=== PATIENT | female | born 1950 | race African-American/Black ===

== ENCOUNTER 2018-09-01 06:02 | Inpatient (IN) | payer OTHER ==
[~2018-09-01] VITALS: Ht 162.6 cm; Wt 72.6 kg
[2018-09-01 07:15] LABS: BASOPHILS % 0.4 % (0.0-2.0); EOSINOPHILS % 0.5 % (0.0-5.0); HEMATOCRIT. 36.1 % (36.0-48.0); HEMOGLOBIN. 11.8 g/dL (12.0-16.0); LYMPHOCYTES % 10.5 % (20.0-50.0); MEAN CORPUSCULAR VOLUME 85.9 fL (81.0-99.0); MEAN PLATELET VOLUME 9.1 fl (7.4-10.4); MONOCYTES % 8.8 % (2.0-8.0); NEUTROPHILS % 79.8 % (40.0-76.0); PLATELET 159 x1000/uL (130-400); RED CELL DISTRIBUTION WIDTH 18.8 % (11.6-14.6)
[2018-09-01 07:23] LABS: CHLORIDE 108 mEq/L (98-107)
[2018-09-01] MEDS ORDERED: AZITHROMYCIN 500 MG in DEXT 5% WATER 250 ML IV SCH (08:30)
[2018-09-01] MEDS ORDERED: CEFTRIAXONE 1 G PREMIX 50 ML IV ONE (08:30)
[2018-09-01] MEDS ORDERED: ASPIRIN 325MG TABLET PO ONE (09:15)
[2018-09-01 10:50] VITALS: BP 135/57
[2018-09-01 11:00] VITALS: BP 135/57
[2018-09-01] MEDS ORDERED: AMLO2.5T45 MT (11:43)
[2018-09-01] MEDS ORDERED: ASPI-1159 MT (11:43)
[2018-09-01] MEDS ORDERED: METO25TA6 MT (11:43)
[2018-09-01 12:15] VITALS: BP 105/70
[2018-09-01] MEDS ORDERED: CLONIDINE 0.1MG TABLET PO PRN (13:45)
[2018-09-01] MEDS ORDERED: IPRATROPIUM/ALBUTEROL 0.5-3(2.5)MG/3ML NEB INH PRN (13:45)
[2018-09-01] MEDS ORDERED: MAGNESIUM/ALUMINUM HYDROXIDE/SIMETHICONE 30ML UDC PO PRN (13:45)
[2018-09-01] MEDS ORDERED: ONDANSETRON HCL 4MG/2ML INJ IV PRN (13:45)
[2018-09-01] MEDS: SODIUM CHLORIDE 0.9% INJ 3ML FLUSH IVF SCH ×2 (14:00→22:16)
[2018-09-01] MEDS: METOPROLOL TARTRATE 25MG TABLET PO SCH (14:30)
[2018-09-01] MEDS: AMLODIPINE 2.5MG TABLET PO SCH (14:30)
[2018-09-01 16:00] VITALS: BP 148/80
[2018-09-01] MEDS ORDERED: IPRATROPIUM BROMIDE (0.02%) 0.5MG/2.5ML NEB HHN PRN (16:30)
[2018-09-01 19:05] LABS: HEPATITIS B SURFACE ANTIGEN NEGATIVE
[2018-09-01 19:33] LABS: HEPATITIS B CORE AB IGM NEGATIVE
[2018-09-01 19:34] LABS: HEPATITIS A AB IGM NEGATIVE (NEGATIVE)
[2018-09-01 20:00] VITALS: BP 148/56
[2018-09-02] VITALS (7 sets, daily range): BP systolic 107–152; BP diastolic 56–71
[2018-09-02] MEDS: METOPROLOL TARTRATE 25MG TABLET PO SCH ×2 (00:28→09:13)
[2018-09-02] MEDS: SODIUM CHLORIDE 0.9% INJ 3ML FLUSH IVF SCH ×2 (06:06→16:32)
[2018-09-02 07:06] LABS: HEMATOCRIT 36.5 % (36.0-48.0); HEMOGLOBIN 11.7 g/dL (12.0-16.0); MEAN CORPUSCULAR HEMOGLOBIN 27.8 pg (28.0-32.0); MEAN CORPUSCULAR VOLUME 86.6 fL (81.0-99.0); PLATELET 170 x1000/uL (130-400); RED BLOOD CELL COUNT 4.22 mill/uL (4.2-5.4); RED CELL DISTRIBUTION WIDTH 18.7 % (11.6-14.6)
[2018-09-02] MEDS ORDERED: BENZONATATE 100MG CAPSULE PO PRN (08:30)
[2018-09-02] MEDS ORDERED: FUROSEMIDE 40MG/4ML VIAL IVP NR (08:30)
[2018-09-02] MEDS ORDERED: GUAIFENESIN 600MG ER TABLET PO SCH (09:00)
[2018-09-02] MEDS: AMLODIPINE 2.5MG TABLET PO SCH (09:13)
[2018-09-02 11:16] LABS: CHLORIDE 106 mEq/L (98-107)
[2018-09-02] MEDS: IPRATROPIUM BROMIDE (0.02%) 0.5MG/2.5ML NEB HHN SCH ×3 (12:34→20:02)
[2018-09-02] MEDS ORDERED: ACETYLCYSTEINE 100MG/ML 10% VIAL 4ML INH SCH (14:00)
== END 2018-09-02 20:48 | disposition short-term general hospital (02) | DRG 308 ==
LOC: ER 06:02 → EDBEDREQ 06:34 → 8WST 09:28 → EDBEDREQ 09:31 → EDBEDREQTM 09:31 → ENRESERV 09:50
PROVIDERS: ADMIT Family Medicine Adult Medicine; ATTEND Family Medicine Adult Medicine
DX: I47.1 Supraventricular tachycardia (principal); J96.00 Acute respiratory failure, unspecified whether with hypoxia or hypercapnia; I50.43 Acute on chronic combined systolic (congestive) and diastolic (congestive) heart failure; E44.0 Moderate protein-calorie malnutrition; I11.0 Hypertensive heart disease with heart failure; Z68.27 Body mass index [BMI] 27.0-27.9, adult; K21.9 Gastro-esophageal reflux disease without esophagitis; R74.0 Nonspecific elevation of levels of transaminase and lactic acid dehydrogenase [LDH]; Z85.3 Personal history of malignant neoplasm of breast; Z86.74 Personal history of sudden cardiac arrest; Z87.01 Personal history of pneumonia (recurrent); Z92.3 Personal history of irradiation; Z79.82 Long term (current) use of aspirin; Z79.899 Other long term (current) drug therapy; Z88.8 Allergy status to other drugs, medicaments and biological substances; Z82.49 Family history of ischemic heart disease and other diseases of the circulatory system; Z83.3 Family history of diabetes mellitus
CPT/HCPCS: 36415; 71045; 83880; 84443; 84484; 85027; 86705; 86709; 86803; 87340; 93005; 93306; 93970; 94640; 96365; 96375; 99291; J0456; J0696; J1940; J7060; J7608

== ENCOUNTER 2024-10-20 14:00 | Inpatient (IN) | payer OTHER, MEDICARE ==
[~2024-10-20] VITALS: Ht 162.6 cm; Wt 81.2 kg
[~2024-10-20 14:00] MED LIST: AMLO2.5T45 MT; ASPI-1497 MT; METO25TA6 MT
[2024-10-20] MEDS: VANCOMYCIN 1G PREMIX 200 ML IV SCH ×2 (14:15→15:07)
[2024-10-20] MEDS: DILTIAZEM HCL 5MG/ML 5ML VIAL IV ONE ×2 (14:22→14:58)
[2024-10-20] MEDS: LACTATED RINGERS 1,000 ML IV SCH (14:25)
[2024-10-20] MEDS: IPRATROPIUM BROMIDE (0.02%) 0.5MG/2.5ML NEB HHN STA (14:26)
[2024-10-20] MEDS: ALBUTEROL (0.083%) 2.5MG/3ML NEB HHN SCH (14:26)
[2024-10-20 14:30] VITALS: RESP 29
[2024-10-20] MEDS: ACETAMINOPHEN 325MG TABLET PO ONE (14:39)
[2024-10-20] MEDS: METHYLPREDNISOLONE SOD SUCC 125MG/2ML (ACT-O-VIAL) IV STA (14:41)
[2024-10-20 14:45] LABS: HEMATOCRIT. 40.2 % (36.0-48.0); HEMOGLOBIN. 13.1 g/dL (12.0-16.0); MEAN CORPUSCULAR HEMOGLOBIN 27.8 pg (28.0-32.0); MEAN CORPUSCULAR HGB CONC 32.5 g/dL (31.0-37.0); MEAN CORPUSCULAR VOLUME 85.4 fL (81.0-99.0); MEAN PLATELET VOLUME 8.7 fl (7.4-10.4); PLATELET 164 x1000/uL (130-400); RED BLOOD CELL COUNT 4.71 mill/uL (4.2-5.4); RED CELL DISTRIBUTION WIDTH 15.5 % (11.6-14.6); WHITE BLOOD COUNT 19.2 x1000/uL (4.5-11.0)
[2024-10-20] MEDS: CEFTRIAXONE 1GM/50ML 50 ML IV ONE (14:46)
[2024-10-20 14:49] LABS: CHLORIDE 105 mEq/L (98-107); POTASSIUM 3.2 mEq/L (3.5-5.1); SODIUM 139 mEq/L (136-145)
[2024-10-20 14:50] LABS: CARBON DIOXIDE 27 mEq/L (21-32)
[2024-10-20 14:51] LABS: CALCIUM 9.1 mg/dL (8.7-10.4); DIFFERENTIAL COMMENT 1
[2024-10-20 14:55] LABS: CREATININE 0.8 mg/dL (0.6-1.0); GLUCOSE 132 mg/dL (70-105)
[2024-10-20 14:56] LABS: INR 1.2; PROTHROMBIN TIME 13.6 sec (9.6-11.0); TROPONIN I HIGH SENSITIVITY 26 ng/L (3.0-34); UREA NITROGEN BLOOD 12 mg/dL (9-23)
[2024-10-20 14:57] LABS: ALANINE AMINOTRANSFERASE 16 IU/L (10-49); ALBUMIN 4.3 g/dL (3.2-4.8); ASPARTATE AMINOTRANSFERASE 19 IU/L (<34); LACTIC ACID 2.3 mmol/L (0.4-2.0)
[2024-10-20 14:58] LABS: BILIRUBIN DIRECT 0.4 mg/dL (<=3.0); PROTEIN TOTAL 7.9 g/dL (6.0-8.3)
[2024-10-20] MEDS ORDERED: DILTIAZEM HCL 125 MG in DEXT 5% WATER 100 ML IV PRN (15:00)
[2024-10-20] MEDS: DILTIAZEM HCL 60MG TABLET PO ONE (15:09)
[2024-10-20] MEDS ORDERED: KCL 20MEQ/100ML PREMIX 100 ML IV ONE (15:15)
[2024-10-20 15:16] LABS: GIANT PLATELETS 1+; PLATELET ESTIMATE NORMAL
[2024-10-20] MEDS: DILTIAZEM HCL 125 MG in DEXT 5% WATER 100 ML IV ONE (15:46)
[2024-10-20] MEDS: KCL 10MEQ/50ML PREMIX 50 ML IV ONE (15:49)
[2024-10-20] MEDS: ENOXAPARIN 80MG/0.8ML SYR SUBCUT ONE (16:23)
[2024-10-20 17:23] LABS: TROPONIN I HIGH SENSITIVITY 41 ng/L (3.0-34)
[2024-10-20] MEDS: DEXT 5%/0.45% NACL 1000ML 1,000 ML IV SCH (17:30)
[2024-10-20] MEDS ORDERED: ACETAMINOPHEN 650MG/20.3ML UDC GT PRN (17:30)
[2024-10-20] MEDS ORDERED: DOCUSATE SODIUM 100MG CAPSULE PO PRN (17:30)
[2024-10-20] MEDS ORDERED: MAGNESIUM/ALUMINUM HYDROXIDE/SIMETHICONE 30ML UDC PO PRN (17:30)
[2024-10-20] MEDS ORDERED: ACETAMINOPHEN 325MG TABLET PO PRN (17:30)
[2024-10-20] MEDS ORDERED: CLONIDINE 0.1MG TABLET PO PRN (17:30)
[2024-10-20] MEDS ORDERED: IPRATROPIUM/ALBUTEROL 0.5-3(2.5)MG/3ML NEB HHN PRN (17:30)
[2024-10-20 17:37] LABS: BG BASE EXCESS -3.2 mmol/L (-2.0-3.0); BG CARBOXYHEMOGLOBIN 0.7 % (0.5-1.5); BG DEOXYHEMOGLOBIN 0.3 % (0.0-5.0); BG FRACTION INSPIRED OXYGEN 80; BG HCO3 ACT 21.8 mmol/L (21.0-28.0); BG METHEMOGLOBIN 0.1 % (0.5-1.5); BG OXYGEN SATURATION 99.7 % (94.0-98.0); BG OXYHEMOGLOBIN 98.9 % (94.0-98.0); BG PCO2 38.9 mmHg (32.0-45.0); BG PH 7.366 (7.350-7.450); BG PO2 384.8 mmHg (83.0-108.0); BG SAMPLE SITE RIGHT BRACHIAL; BG TOTAL HEMOGLOBIN 13.4 g/dL (12.0-16.0); BG VENT MODE MASK - BIPAP
[2024-10-20] MEDS: KCL 20MEQ/100ML PREMIX 100 ML IV NR (17:55)
[2024-10-20] MEDS ORDERED: IPRATROPIUM/ALBUTEROL 0.5-3(2.5)MG/3ML NEB HHN SCH (18:00)
[2024-10-20] MEDS: DOXYCYCLINE 100MG/100ML 100 ML IV SCH (18:31)
[2024-10-20] MEDS: AMIODARONE 200MG TABLET PO SCH (18:31)
[2024-10-20] MEDS: IPRATROPIUM BROMIDE (0.02%) 0.5MG/2.5ML NEB HHN SCH (19:53)
[2024-10-20 20:22] VITALS: PULSE 122; RESP 22; O2SAT 97
[2024-10-20] MEDS: FUROSEMIDE 40MG/4ML VIAL IVP NR (20:43)
[2024-10-20] MEDS: ATORVASTATIN CALCIUM 20MG TABLET PO SCH (21:51)
[2024-10-20] MEDS: PIPERACILLIN/TAZO 3.375G/50ML 50 ML IV SCH (22:08)
[2024-10-20 23:50] VITALS: PULSE 115; RESP 22; O2SAT 95
[2024-10-20] MEDS: ACETYLCYSTEINE 200MG/ML 20% VIAL 4ML INH SCH (23:54)
[2024-10-21] VITALS (14 sets, daily range): BP systolic 101–134; BP diastolic 67–122; PULSE 104–137; RESP 16–32; TEMP 36.114–37.72524; O2SAT 93–100
[2024-10-21] MEDS: DILTIAZEM HCL 30MG TABLET PO SCH (00:54)
[2024-10-21 01:17] LABS: CREATINE KINASE MB FRACTION 6.6 ng/mL (0.5-3.6)
[2024-10-21] MEDS: DILTIAZEM HCL 125 MG in DEXT 5% WATER 100 ML IV SCH (03:16)
[2024-10-21] MEDS: FUROSEMIDE 40MG/4ML VIAL IVP NR (03:17)
[2024-10-21] MEDS: IPRATROPIUM/ALBUTEROL 0.5-3(2.5)MG/3ML NEB HHN SCH (03:51)
[2024-10-21] MEDS: ENOXAPARIN 80MG/0.8ML SYR SUBCUT SCH (05:38)
[2024-10-21 08:39] LABS: BG CARBOXYHEMOGLOBIN 0.4 % (0.5-1.5); BG DEOXYHEMOGLOBIN 2.6 % (0.0-5.0); BG FRACTION INSPIRED OXYGEN 60; BG HCO3 ACT 26.8 mmol/L (21.0-28.0); BG METHEMOGLOBIN 0.3 % (0.5-1.5); BG OXYGEN SATURATION 97.4 % (94.0-98.0); BG OXYHEMOGLOBIN 96.7 % (94.0-98.0); BG PCO2 47.7 mmHg (32.0-45.0); BG PH 7.368 (7.350-7.450); BG PO2 95.3 mmHg (83.0-108.0); BG SAMPLE SITE RIGHT RADIAL; BG TOTAL HEMOGLOBIN 13.4 g/dL (12.0-16.0); BG VENT MODE MASK - BIPAP
[2024-10-21] MEDS ORDERED: AMIODARONE 200MG TABLET PO SCH (09:00)
[2024-10-21] MEDS: PANTOPRAZOLE SODIUM 40 MG/VIAL IV SCH (09:20)
[2024-10-21] MEDS: FUROSEMIDE 40MG/4ML VIAL IVP SCH (09:20)
[2024-10-21] MEDS: ASPIRIN 81MG TABLET PO SCH (09:21)
[2024-10-21] MEDS: ANASTROZOLE 1 MG TABLET PO SCH (09:21)
[2024-10-21] MEDS: AMLODIPINE 5MG TABLET PO SCH (09:21)
[2024-10-21] MEDS ORDERED: IPRATROPIUM/ALBUTEROL 0.5-3(2.5)MG/3ML NEB HHN PRN (09:30)
[2024-10-21] MEDS: VANCOMYCIN 1G PREMIX 200 ML IV SCH (11:28)
[2024-10-21] MEDS: IPRATROPIUM BROMIDE (0.02%) 0.5MG/2.5ML NEB HHN SCH (11:59)
[2024-10-21 12:00] LABS: HEMATOCRIT. 39.3 % (36.0-48.0); HEMOGLOBIN. 12.8 g/dL (12.0-16.0); MEAN CORPUSCULAR HEMOGLOBIN 27.9 pg (28.0-32.0); MEAN CORPUSCULAR HGB CONC 32.6 g/dL (31.0-37.0); MEAN CORPUSCULAR VOLUME 85.7 fL (81.0-99.0); MEAN PLATELET VOLUME 9.9 fl (7.4-10.4); PLATELET 158 x1000/uL (130-400); RED BLOOD CELL COUNT 4.59 mill/uL (4.2-5.4); RED CELL DISTRIBUTION WIDTH 15.9 % (11.6-14.6); WHITE BLOOD COUNT 33.8 x1000/uL (4.5-11.0)
[2024-10-21 12:06] LABS: DIFFERENTIAL COMMENT 1
[2024-10-21 12:18] LABS: CARBON DIOXIDE 25 mEq/L (21-32); CHLORIDE 102 mEq/L (98-107); POTASSIUM 3.7 mEq/L (3.5-5.1); SODIUM 136 mEq/L (136-145)
[2024-10-21 12:19] LABS: CALCIUM 9.7 mg/dL (8.7-10.4)
[2024-10-21 12:24] LABS: GLUCOSE 169 mg/dL (70-105); TRIGLYCERIDE 50 mg/dL (0-150); UREA NITROGEN BLOOD 17 mg/dL (9-23)
[2024-10-21 12:25] LABS: CREATINE KINASE MB FRACTION 9.9 ng/mL (0.5-3.6); LDL CHOLESTEROL 55 mg/dL (5-100)
[2024-10-21 12:26] LABS: CHOLESTEROL 122 mg/dL (<200); HDL CHOLESTEROL 52 mg/dL (>65); PHOSPHORUS 2.5 mg/dL (2.5-4.9)
[2024-10-21 12:30] LABS: THYROID STIMULATING HORMONE 0.41 uIU/mL (0.55-4.78)
[2024-10-21] MEDS: DILTIAZEM HCL 60MG TABLET PO SCH (13:21)
[2024-10-21] MEDS: SODIUM CHLORIDE 0.9% 1,000 ML IV SCH (17:57)
[2024-10-21] MEDS: DOXYCYCLINE 100MG/100ML 100 ML IV SCH (17:57)
[2024-10-21 18:15] LABS: CREATINE KINASE MB FRACTION 11.7 ng/mL (0.5-3.6)
[2024-10-21 19:45] LABS: ANISOCYTOSIS 1+; PLATELET ESTIMATE NORMAL
[2024-10-21] MEDS: MAGNESIUM 4 G PREMIX 100 ML IV NR (20:13)
[2024-10-21] MEDS: ONDANSETRON HCL 4MG/2ML INJ IV PRN (20:38)
[2024-10-21] MEDS: GUAIFENESIN 200MG/10ML SUGAR FREE UDC PO PRN (20:39)
[2024-10-22] VITALS (45 sets, daily range): BP systolic 104–140; BP diastolic 71–94; PULSE 80–149; RESP 16–46; TEMP 36.22512–37.16964; O2SAT 92–98
[2024-10-22 01:03] LABS: CLARITY URINE TURBID (CLEAR); COLOR URINE DARK YELLOW (YELLOW); GLUCOSE URINE NEGATIVE (NEGATIVE); KETONES URINE TRACE (NEGATIVE); LEUKOCYTE ESTERASE URINE NEGATIVE (NEGATIVE); NITRITE URINE NEGATIVE (NEGATIVE); OCCULT BLOOD URINE 2+ (NEGATIVE); PROTEIN URINE 2+ (NEGATIVE)
[2024-10-22 01:09] LABS: *AMPHETAMINES SCREEN URINE NEGATIVE (NEGATIVE)
[2024-10-22 01:10] LABS: *BARBITURATES SCREEN URINE NEGATIVE (NEGATIVE); *BENZODIAZEPINES SCREEN URINE NEGATIVE (NEGATIVE); *COCAINE SCREEN URINE NEGATIVE (NEGATIVE); CANNABINOID URINE SCREEN NEGATIVE (NEGATIVE); ECSTASY MDMA SCREEN URINE NEGATIVE (NEGATIVE); METHADONE URINE SCREEN NEGATIVE (NEGATIVE); OPIATES URINE SCREEN NEGATIVE (NEGATIVE); PHENCYCLIDINE URINE SCREEN NEGATIVE (NEGATIVE)
[2024-10-22 02:01] LABS: WBC URINE 0-2 /hpf (0-2)
[2024-10-22 02:02] LABS: SQUAMOUS EPITHELIAL CELL URINE FEW /lpf (RARE/1+)
[2024-10-22 02:04] LABS: BACTERIA URINE TRACE
[2024-10-22] MEDS: DIGOXIN 500MCG/2ML AMP IV PRN (06:00)
[2024-10-22] MEDS: ENOXAPARIN 100MG/ML SYR SUBCUT SCH (06:02)
[2024-10-22 09:04] LABS: BG BASE EXCESS 3.6 mmol/L (-2.0-3.0); BG CARBOXYHEMOGLOBIN 1.1 % (0.5-1.5); BG DEOXYHEMOGLOBIN 6.8 % (0.0-5.0); BG FRACTION INSPIRED OXYGEN 60; BG HCO3 ACT 28.5 mmol/L (21.0-28.0); BG OXYGEN SATURATION 93.1 % (94.0-98.0); BG OXYHEMOGLOBIN 92.1 % (94.0-98.0); BG PH 7.429 (7.350-7.450); BG PO2 63.7 mmHg (83.0-108.0); BG SAMPLE SITE RIGHT RADIAL; BG TOTAL HEMOGLOBIN 12.7 g/dL (12.0-16.0)
[2024-10-22 09:18] LABS: HEMOGLOBIN. 11.9 g/dL (12.0-16.0); MEAN CORPUSCULAR HGB CONC 32.9 g/dL (31.0-37.0); MEAN CORPUSCULAR VOLUME 84.9 fL (81.0-99.0); MEAN PLATELET VOLUME 9.3 fl (7.4-10.4); PLATELET 134 x1000/uL (130-400); RED BLOOD CELL COUNT 4.24 mill/uL (4.2-5.4); RED CELL DISTRIBUTION WIDTH 15.8 % (11.6-14.6); WHITE BLOOD COUNT 25.7 x1000/uL (4.5-11.0)
[2024-10-22 09:19] LABS: DIFFERENTIAL COMMENT 1
[2024-10-22 09:27] LABS: CHLORIDE 101 mEq/L (98-107); POTASSIUM 3.8 mEq/L (3.5-5.1); SODIUM 134 mEq/L (136-145)
[2024-10-22 09:28] LABS: CALCIUM 9.1 mg/dL (8.7-10.4); CARBON DIOXIDE 28 mEq/L (21-32)
[2024-10-22 09:33] LABS: CREATININE 0.8 mg/dL (0.6-1.0); GLUCOSE 115 mg/dL (70-105); UREA NITROGEN BLOOD 17 mg/dL (9-23)
[2024-10-22 10:22] LABS: PLATELET ESTIMATE NORMAL
[2024-10-22] MEDS: METHYLPREDNISOLONE SOD SUCC 125MG/2ML (ACT-O-VIAL) IV NR (11:34)
[2024-10-22] MEDS: DIGOXIN 500MCG/2ML AMP IV NR (12:51)
[2024-10-22] MEDS ORDERED: DIGOXIN 500MCG/2ML AMP IV PRN (14:30)
[2024-10-22 14:31] LABS: BG BASE EXCESS 1.4 mmol/L (-2.0-3.0); BG CARBOXYHEMOGLOBIN 0.5 % (0.5-1.5); BG DEOXYHEMOGLOBIN 3.7 % (0.0-5.0); BG FRACTION INSPIRED OXYGEN 100; BG HCO3 ACT 26.2 mmol/L (21.0-28.0); BG METHEMOGLOBIN 0.3 % (0.5-1.5); BG OXYGEN SATURATION 96.3 % (94.0-98.0); BG OXYHEMOGLOBIN 95.5 % (94.0-98.0); BG PCO2 41.9 mmHg (32.0-45.0); BG PH 7.414 (7.350-7.450); BG PO2 82.2 mmHg (83.0-108.0); BG SAMPLE SITE RIGHT RADIAL; BG TOTAL HEMOGLOBIN 13.3 g/dL (12.0-16.0); BG TOTAL RESPIRATORY RATE 33 b/min; BG VENT MODE MASK - BIPAP
[2024-10-22] MEDS: DILTIAZEM HCL 90MG TABLET PO SCH (14:56)
[2024-10-22] MEDS: DEXT 5%/LACTATED RINGERS 1,000 ML IV SCH (17:17)
[2024-10-22] MEDS: METHYLPREDNISOLONE SOD SUCC 40MG/ML (ACT-O-VIAL) IV SCH (18:05)
[2024-10-22] MEDS ORDERED: AMIODARONE 150MG/100ML D5W 100 ML IV NR (21:20)
[2024-10-22] MEDS ORDERED: AMIODARONE HCL 900 MG in DEXT 5% WATER 482 ML IV SCH (22:00)
[2024-10-22] MEDS ORDERED: AMIODARONE 360MG/200ML 200 ML IV SCH (22:00)
[2024-10-22 23:47] LABS: BG BASE EXCESS 3.9 mmol/L (-2.0-3.0); BG CARBOXYHEMOGLOBIN 0.6 % (0.5-1.5); BG DEOXYHEMOGLOBIN 4.1 % (0.0-5.0); BG FRACTION INSPIRED OXYGEN 100; BG HCO3 ACT 28.6 mmol/L (21.0-28.0); BG METHEMOGLOBIN 0.3 % (0.5-1.5); BG OXYGEN SATURATION 95.9 % (94.0-98.0); BG PCO2 43.3 mmHg (32.0-45.0); BG PH 7.437 (7.350-7.450); BG PO2 78.4 mmHg (83.0-108.0); BG TOTAL HEMOGLOBIN 12.1 g/dL (12.0-16.0); BG VENT MODE MASK - BIPAP
[2024-10-23] VITALS (74 sets, daily range): BP systolic 116–159; BP diastolic 52–140; PULSE 81–137; RESP 15–40; TEMP 36.114–36.9474; O2SAT 74–99
[2024-10-23] MEDS: BLOOD SUGAR DIAGNOSTIC STRIP TEST SCH
[2024-10-23] MEDS: INSULIN LISPRO 100 UNITS/ML SUBCUT SCH ×2 (01:52→05:48)
[2024-10-23] MEDS: FUROSEMIDE 40MG/4ML VIAL IVP NR (07:11)
[2024-10-23 07:33] LABS: HEMATOCRIT 33.2 % (36.0-48.0); HEMOGLOBIN 11.1 g/dL (12.0-16.0); MEAN CORPUSCULAR HEMOGLOBIN 28.1 pg (28.0-32.0); MEAN CORPUSCULAR HGB CONC 33.4 g/dL (31.0-37.0); MEAN CORPUSCULAR VOLUME 84.2 fL (81.0-99.0); PLATELET 135 x1000/uL (130-400); RED BLOOD CELL COUNT 3.94 mill/uL (4.2-5.4); RED CELL DISTRIBUTION WIDTH 15.6 % (11.6-14.6); WHITE BLOOD COUNT 19.7 x1000/uL (4.5-11.0)
[2024-10-23 07:42] LABS: CARBON DIOXIDE 29 mEq/L (21-32); CHLORIDE 101 mEq/L (98-107); POTASSIUM 4.2 mEq/L (3.5-5.1); SODIUM 135 mEq/L (136-145)
[2024-10-23 07:43] LABS: CALCIUM 9.4 mg/dL (8.7-10.4)
[2024-10-23 07:48] LABS: CREATININE 0.6 mg/dL (0.6-1.0); GLUCOSE 140 mg/dL (70-105); UREA NITROGEN BLOOD 18 mg/dL (9-23)
[2024-10-23 08:52] LABS: BG BASE EXCESS 2.2 mmol/L (-2.0-3.0); BG CARBOXYHEMOGLOBIN 0.1 % (0.5-1.5); BG DEOXYHEMOGLOBIN 3.9 % (0.0-5.0); BG FRACTION INSPIRED OXYGEN 90; BG METHEMOGLOBIN 0.3 % (0.5-1.5); BG OXYGEN SATURATION 96.1 % (94.0-98.0); BG OXYHEMOGLOBIN 95.7 % (94.0-98.0); BG PCO2 33.3 mmHg (32.0-45.0); BG PH 7.494 (7.350-7.450); BG PO2 74.3 mmHg (83.0-108.0); BG SAMPLE SITE RIGHT RADIAL; BG TOTAL HEMOGLOBIN 12.3 g/dL (12.0-16.0); BG VENT MODE MASK - BIPAP
[2024-10-23] MEDS: FAMOTIDINE 20MG/2ML VIAL IV SCH (09:49)
[2024-10-23 10:40] LABS: HEMATOCRIT. 34.8 % (36.0-48.0); HEMOGLOBIN. 11.3 g/dL (12.0-16.0); MEAN CORPUSCULAR HEMOGLOBIN 27.5 pg (28.0-32.0); MEAN CORPUSCULAR HGB CONC 32.5 g/dL (31.0-37.0); MEAN CORPUSCULAR VOLUME 84.7 fL (81.0-99.0); MEAN PLATELET VOLUME 9.3 fl (7.4-10.4); PLATELET 148 x1000/uL (130-400); RED BLOOD CELL COUNT 4.11 mill/uL (4.2-5.4); RED CELL DISTRIBUTION WIDTH 16.1 % (11.6-14.6)
[2024-10-23 10:46] LABS: DIFFERENTIAL COMMENT 1
[2024-10-23 10:47] LABS: CHLORIDE 100 mEq/L (98-107); POTASSIUM 3.6 mEq/L (3.5-5.1); SODIUM 138 mEq/L (136-145)
[2024-10-23 10:48] LABS: CALCIUM 9.3 mg/dL (8.7-10.4); CARBON DIOXIDE 28 mEq/L (21-32)
[2024-10-23 10:53] LABS: CREATININE 0.7 mg/dL (0.6-1.0); GLUCOSE 161 mg/dL (70-105); UREA NITROGEN BLOOD 18 mg/dL (9-23)
[2024-10-23 10:54] LABS: TROPONIN I HIGH SENSITIVITY 7 ng/L (3.0-34)
[2024-10-23] MEDS: VANCOMYCIN 750MG/150ML (BAXTER) IV SCH (11:42)
[2024-10-23] MEDS: DILTIAZEM HCL 5MG/ML 5ML VIAL IV NR (11:43)
[2024-10-23 14:49] LABS: PLATELET ESTIMATE NORMAL
[2024-10-23] MEDS: ENOXAPARIN 80MG/0.8ML SYR SUBCUT SCH (21:38)
[2024-10-24] VITALS (45 sets, daily range): BP systolic 109–155; BP diastolic 81–140; PULSE 85–119; RESP 16–32; TEMP 36.3918–37.05852; O2SAT 92–99
[2024-10-24 06:13] LABS: HEMATOCRIT. 32.4 % (36.0-48.0); HEMOGLOBIN. 10.7 g/dL (12.0-16.0); MEAN CORPUSCULAR HEMOGLOBIN 27.6 pg (28.0-32.0); MEAN CORPUSCULAR HGB CONC 32.9 g/dL (31.0-37.0); MEAN CORPUSCULAR VOLUME 83.7 fL (81.0-99.0); MEAN PLATELET VOLUME 9.2 fl (7.4-10.4); PLATELET 178 x1000/uL (130-400); RED BLOOD CELL COUNT 3.88 mill/uL (4.2-5.4); WHITE BLOOD COUNT 17.2 x1000/uL (4.5-11.0)
[2024-10-24 06:33] LABS: CHLORIDE 102 mEq/L (98-107); POTASSIUM 3.7 mEq/L (3.5-5.1); SODIUM 139 mEq/L (136-145)
[2024-10-24 06:34] LABS: CARBON DIOXIDE 32 mEq/L (21-32)
[2024-10-24 06:35] LABS: CALCIUM 9.3 mg/dL (8.7-10.4); TROPONIN I HIGH SENSITIVITY 6 ng/L (3.0-34)
[2024-10-24 06:40] LABS: CREATININE 0.7 mg/dL (0.6-1.0); GLUCOSE 137 mg/dL (70-105); UREA NITROGEN BLOOD 20 mg/dL (9-23)
[2024-10-24 08:00] LABS: DIFFERENTIAL COMMENT 1
[2024-10-24] MEDS: FUROSEMIDE 40MG/4ML VIAL IVP SCH (08:45)
[2024-10-24 10:40] LABS: BG BASE EXCESS 6.7 mmol/L (-2.0-3.0); BG CARBOXYHEMOGLOBIN 0.3 % (0.5-1.5); BG DEOXYHEMOGLOBIN 3.2 % (0.0-5.0); BG FRACTION INSPIRED OXYGEN 80; BG HCO3 ACT 31.5 mmol/L (21.0-28.0); BG METHEMOGLOBIN 0.3 % (0.5-1.5); BG OXYGEN SATURATION 96.8 % (94.0-98.0); BG OXYHEMOGLOBIN 96.2 % (94.0-98.0); BG PCO2 45.8 mmHg (32.0-45.0); BG PH 7.455 (7.350-7.450); BG PO2 83.5 mmHg (83.0-108.0); BG SAMPLE SITE RIGHT RADIAL; BG TOTAL HEMOGLOBIN 12.4 g/dL (12.0-16.0); BG VENT MODE MASK - BIPAP
[2024-10-24 11:48] LABS: ANISOCYTOSIS 1+; PLATELET ESTIMATE NORMAL
[2024-10-24] MEDS: POTASSIUM CHLORIDE 20MEQ/PACKET PO SCH (12:31)
[2024-10-24] MEDS ORDERED: VANCOMYCIN 750MG PREMIX 150 ML IV SCH (22:30)
[2024-10-25] VITALS (40 sets, daily range): BP systolic 97–133; BP diastolic 58–101; PULSE 84–106; RESP 18–32; TEMP 36.55848–37.11408; O2SAT 90–100
[2024-10-25] MEDS ORDERED: VANCOMYCIN 1.25GM PMX (XELLIA) 250 ML IV SCH
[2024-10-25 06:37] LABS: HEMATOCRIT. 32.9 % (36.0-48.0); HEMOGLOBIN. 10.7 g/dL (12.0-16.0); MEAN CORPUSCULAR HEMOGLOBIN 27.4 pg (28.0-32.0); MEAN CORPUSCULAR HGB CONC 32.6 g/dL (31.0-37.0); MEAN CORPUSCULAR VOLUME 84.1 fL (81.0-99.0); MEAN PLATELET VOLUME 8.9 fl (7.4-10.4); PLATELET 201 x1000/uL (130-400); RED BLOOD CELL COUNT 3.91 mill/uL (4.2-5.4); RED CELL DISTRIBUTION WIDTH 15.8 % (11.6-14.6); WHITE BLOOD COUNT 13.5 x1000/uL (4.5-11.0)
[2024-10-25 06:40] LABS: DIFFERENTIAL COMMENT 1
[2024-10-25 07:02] LABS: CALCIUM 9.5 mg/dL (8.7-10.4); CARBON DIOXIDE 35 mEq/L (21-32); CHLORIDE 99 mEq/L (98-107); POTASSIUM 3.5 mEq/L (3.5-5.1); SODIUM 141 mEq/L (136-145)
[2024-10-25 07:08] LABS: CREATININE 0.7 mg/dL (0.6-1.0); GLUCOSE 140 mg/dL (70-105); UREA NITROGEN BLOOD 22 mg/dL (9-23)
[2024-10-25 11:51] LABS: NUCLEATED RED BLOOD CELLS 1 /100 WBC; PLATELET ESTIMATE NORMAL
[2024-10-25] MEDS: ANASTROZOLE 1 MG TABLET PO SCH (13:04)
[2024-10-25] MEDS ORDERED: VANCOMYCIN 1GM/200ML PMX (BAXTER) IV SCH (22:00)
[2024-10-26] VITALS (36 sets, daily range): BP systolic 90–138; BP diastolic 76–114; PULSE 99–144; RESP 2–39; TEMP 36.55848–36.72516; O2SAT 88–100
[2024-10-26] MEDS ORDERED: CEFEPIME 2GM IN DEXT 5% 100ML IV SCH (02:45)
[2024-10-26] MEDS: CEFEPIME 2GM PREMIX 100ML IV SCH ×2 (05:32→20:04)
[2024-10-26 06:28] LABS: MEAN CORPUSCULAR HEMOGLOBIN 27.5 pg (28.0-32.0); MEAN CORPUSCULAR HGB CONC 32.4 g/dL (31.0-37.0); MEAN CORPUSCULAR VOLUME 84.9 fL (81.0-99.0); PLATELET 214 x1000/uL (130-400); RED CELL DISTRIBUTION WIDTH 15.6 % (11.6-14.6); WHITE BLOOD COUNT 13.8 x1000/uL (4.5-11.0)
[2024-10-26 06:45] LABS: CARBON DIOXIDE 36 mEq/L (21-32); CHLORIDE 98 mEq/L (98-107); POTASSIUM 3.5 mEq/L (3.5-5.1); SODIUM 141 mEq/L (136-145)
[2024-10-26 06:46] LABS: CALCIUM 9.3 mg/dL (8.7-10.4)
[2024-10-26 06:51] LABS: CREATININE 0.8 mg/dL (0.6-1.0); GLUCOSE 138 mg/dL (70-105); UREA NITROGEN BLOOD 32 mg/dL (9-23)
[2024-10-26 10:22] LABS: BG BASE EXCESS 11.6 mmol/L (-2.0-3.0); BG CARBOXYHEMOGLOBIN 0.5 % (0.5-1.5); BG DEOXYHEMOGLOBIN 3.7 % (0.0-5.0); BG FRACTION INSPIRED OXYGEN 100; BG METHEMOGLOBIN 0.3 % (0.5-1.5); BG OXYGEN SATURATION 96.3 % (94.0-98.0); BG OXYHEMOGLOBIN 95.5 % (94.0-98.0); BG PCO2 40.5 mmHg (32.0-45.0); BG PH 7.554 (7.350-7.450); BG PO2 77.4 mmHg (83.0-108.0); BG SAMPLE SITE RIGHT BRACHIAL; BG TOTAL HEMOGLOBIN 12.4 g/dL (12.0-16.0); BG VENT MODE HIGH FLOW
[2024-10-26] MEDS: METHYLPREDNISOLONE SOD SUCC 40MG/ML (ACT-O-VIAL) IV SCH (13:30)
[2024-10-26] MEDS ORDERED: DILTIAZEM HCL 60MG TABLET PO ONE (13:45)
[2024-10-26] MEDS: DILTIAZEM HCL 5MG/ML 5ML VIAL IV NR (22:32)
[2024-10-26] MEDS: DILTIAZEM HCL 125 MG in DEXT 5% WATER 100 ML IV PRN (22:39)
[2024-10-27] VITALS (96 sets, daily range): BP systolic 79–158; BP diastolic 50–143; PULSE 93–135; RESP 14–39; TEMP 36.55848–36.6696; O2SAT 73–100
[2024-10-27 06:29] LABS: CARBON DIOXIDE 33 mEq/L (21-32); CHLORIDE 97 mEq/L (98-107); POTASSIUM 3.6 mEq/L (3.5-5.1); SODIUM 138 mEq/L (136-145)
[2024-10-27 06:31] LABS: CALCIUM 9.3 mg/dL (8.7-10.4)
[2024-10-27 06:35] LABS: GLUCOSE 153 mg/dL (70-105); HEMATOCRIT 34.8 % (36.0-48.0); HEMOGLOBIN 11.1 g/dL (12.0-16.0); MEAN CORPUSCULAR VOLUME 84.3 fL (81.0-99.0); PLATELET 230 x1000/uL (130-400); RED BLOOD CELL COUNT 4.13 mill/uL (4.2-5.4); RED CELL DISTRIBUTION WIDTH 15.8 % (11.6-14.6); WHITE BLOOD COUNT 22.7 x1000/uL (4.5-11.0)
[2024-10-27 06:36] LABS: UREA NITROGEN BLOOD 39 mg/dL (9-23)
[2024-10-27 08:40] LABS: BG BASE EXCESS 8.3 mmol/L (-2.0-3.0); BG CARBOXYHEMOGLOBIN 0.9 % (0.5-1.5); BG DEOXYHEMOGLOBIN 2.9 % (0.0-5.0); BG FRACTION INSPIRED OXYGEN 70; BG METHEMOGLOBIN 0.3 % (0.5-1.5); BG OXYGEN SATURATION 97.1 % (94.0-98.0); BG OXYHEMOGLOBIN 95.9 % (94.0-98.0); BG PCO2 35.8 mmHg (32.0-45.0); BG PH 7.555 (7.350-7.450); BG PO2 83.6 mmHg (83.0-108.0); BG SAMPLE SITE RIGHT RADIAL; BG TOTAL HEMOGLOBIN 11.2 g/dL (12.0-16.0); BG VENT MODE MASK - BIPAP
[2024-10-27] MEDS: FUROSEMIDE 40MG/4ML VIAL IVP SCH (09:08)
[2024-10-27] MEDS ORDERED: LIDOCAINE HCL 1% 10 MG/ML 10ML VIAL ONE (11:08)
[2024-10-27] MEDS: DILTIAZEM HCL 30MG TABLET PO SCH (13:38)
[2024-10-27] MEDS: DILTIAZEM HCL 125 MG in DEXT 5% WATER 100 ML IV SCH (17:03)
[2024-10-27] MEDS: SODIUM CHLORIDE 0.45% 1,000 ML IV SCH (17:05)
[2024-10-27] MEDS ORDERED: IPRATROPIUM/ALBUTEROL 0.5-3(2.5)MG/3ML NEB HHN PRN (17:30)
[2024-10-27] MEDS: IPRATROPIUM BROMIDE (0.02%) 0.5MG/2.5ML NEB HHN SCH (17:30)
[2024-10-27 20:02] LABS: CLARITY URINE CLOUDY (CLEAR); COLOR URINE DARK YELLOW (YELLOW); GLUCOSE URINE NEGATIVE (NEGATIVE); KETONES URINE TRACE (NEGATIVE); LEUKOCYTE ESTERASE URINE 1+ (NEGATIVE); NITRITE URINE NEGATIVE (NEGATIVE); OCCULT BLOOD URINE 3+ (NEGATIVE); PH URINE 5.5 (4.5-8.0); PROTEIN URINE 1+ (NEGATIVE); SPECIFIC GRAVITY URINE 1.021 (1.005-1.030); UROBILINOGEN URINE 0.2 E.U./dL (0.2-1.0)
[2024-10-27 20:20] LABS: BACTERIA URINE 2+; SQUAMOUS EPITHELIAL CELL URINE 1+ /lpf (RARE/1+)
[2024-10-27 20:21] LABS: HYALINE CASTS URINE 0-5 /lpf; RBC URINE TNTC /hpf (0-2)
[2024-10-27] MEDS: LORAZEPAM 0.5MG TABLET PO NR (21:07)
[2024-10-28] VITALS (137 sets, daily range): BP systolic 33–150; BP diastolic 16–133; PULSE 48–124; RESP 14–45; TEMP 36.05844–36.89184; O2SAT 5–100
[2024-10-28] MEDS: DEXMEDETOMIDINE 400 MCG/100 ML 100 ML IV PRN (03:26)
[2024-10-28] MEDS ORDERED: PHENYLEPHRINE 50MG/250ML PMX 250 ML IV PRN (05:00)
[2024-10-28 06:39] LABS: BG BASE EXCESS -20.6 mmol/L (-2.0-3.0); BG CARBOXYHEMOGLOBIN 0.3 % (0.5-1.5); BG DEOXYHEMOGLOBIN 3.2 % (0.0-5.0); BG FRACTION INSPIRED OXYGEN 100; BG HCO3 ACT 8.9 mmol/L (21.0-28.0); BG METHEMOGLOBIN 0.3 % (0.5-1.5); BG OXYGEN SATURATION 96.8 % (94.0-98.0); BG OXYHEMOGLOBIN 96.2 % (94.0-98.0); BG PCO2 34.6 mmHg (32.0-45.0); BG PH 7.026 (7.350-7.450); BG PO2 129.6 mmHg (83.0-108.0); BG SAMPLE SITE LEFT FEMORAL; BG TOTAL HEMOGLOBIN 8.9 g/dL (12.0-16.0); BG TOTAL RESPIRATORY RATE 16 b/min; BG VENT MODE VENT - AC
[2024-10-28] MEDS: SODIUM BICARBONATE 8.4% 50MEQ/50ML SYR IV NR ×5 (06:59→22:17)
[2024-10-28] MEDS: PHENYLEPHRINE 50 MG in DEXTROSE 5% WATER 250 ML IV PRN (07:00)
[2024-10-28] MEDS: DOPAMINE 400MG/250ML PREMIX 250 ML IV PRN (07:00)
[2024-10-28] MEDS: VASOPRESSIN 20 UNIT in SODIUM CHLORIDE 0.9% 99 ML IV PRN (08:51)
[2024-10-28 09:32] LABS: BG BASE EXCESS -19.2 mmol/L (-2.0-3.0); BG CARBOXYHEMOGLOBIN 0.3 % (0.5-1.5); BG DEOXYHEMOGLOBIN 9.9 % (0.0-5.0); BG FRACTION INSPIRED OXYGEN 80; BG HCO3 ACT 9.4 mmol/L (21.0-28.0); BG METHEMOGLOBIN 0.1 % (0.5-1.5); BG OXYGEN SATURATION 90.1 % (94.0-98.0); BG OXYHEMOGLOBIN 89.7 % (94.0-98.0); BG PCO2 32.6 mmHg (32.0-45.0); BG PH 7.077 (7.350-7.450); BG PO2 89.8 mmHg (83.0-108.0); BG SAMPLE SITE RIGHT RADIAL; BG TOTAL HEMOGLOBIN 8.2 g/dL (12.0-16.0); BG VENT MODE VENT - AC
[2024-10-28] MEDS: ALBUMIN HUMAN 25GM/500ML (5%) IV NR (09:44)
[2024-10-28] MEDS: SODIUM BICARBONATE 8.4% 50MEQ/50ML SYR IV SCH (09:50)
[2024-10-28] MEDS: SODIUM CHLORIDE 0.9% 500 ML IV ONE ×2 (10:16→17:22)
[2024-10-28] MEDS: PIPERACILLIN/TAZO 3.375G/100ML 100 ML IV SCH (10:23)
[2024-10-28] MEDS: SODIUM BICARBONATE 8.4% 50MEQ/50ML SYR IV ONE (10:23)
[2024-10-28 10:41] LABS: POTASSIUM 5.3 mEq/L (3.5-5.1)
[2024-10-28 10:42] LABS: CALCIUM 8.5 mg/dL (8.7-10.4)
[2024-10-28 11:06] LABS: CREATININE 2.4 mg/dL (0.6-1.0)
[2024-10-28] MEDS ORDERED: SODIUM POLYSTYRENE SULFONATE 15 G/60 ML BOT PO NR (11:15)
[2024-10-28] MEDS ORDERED: SODIUM CHLORIDE 0.9% 1,000 ML IV SCH (11:15)
[2024-10-28 11:29] LABS: CHLORIDE 90 mEq/L (98-107); POTASSIUM 4.9 mEq/L (3.5-5.1); SODIUM 140 mEq/L (136-145)
[2024-10-28 11:30] LABS: CARBON DIOXIDE 16 mEq/L (21-32)
[2024-10-28 11:31] LABS: CALCIUM 7.5 mg/dL (8.7-10.4)
[2024-10-28 11:33] LABS: MEAN CORPUSCULAR HGB CONC 29.6 g/dL (31.0-37.0); MEAN PLATELET VOLUME 10.4 fl (7.4-10.4); PLATELET 150 x1000/uL (130-400); RED BLOOD CELL COUNT 2.36 mill/uL (4.2-5.4); RED CELL DISTRIBUTION WIDTH 17.2 % (11.6-14.6)
[2024-10-28 11:35] LABS: CREATININE 2.5 mg/dL (0.6-1.0)
[2024-10-28 11:36] LABS: GLUCOSE 90 mg/dL (70-105); UREA NITROGEN BLOOD 64 mg/dL (9-23)
[2024-10-28 11:38] LABS: ALBUMIN 2.2 g/dL (3.2-4.8); BILIRUBIN DIRECT 0.9 mg/dL (<=3.0); BILIRUBIN TOTAL 1.7 mg/dL (0.1-1.0)
[2024-10-28 11:40] LABS: DIFFERENTIAL COMMENT 1
[2024-10-28 11:42] LABS: HEMATOCRIT. 22.3 % (36.0-48.0)
[2024-10-28 11:43] LABS: HEMOGLOBIN. 6.6 g/dL (12.0-16.0); MEAN CORPUSCULAR VOLUME 94.6 fL (81.0-99.0); WHITE BLOOD COUNT 71.8 x1000/uL (4.5-11.0)
[2024-10-28 11:49] LABS: ASPARTATE AMINOTRANSFERASE 5869 IU/L (<34)
[2024-10-28] MEDS: VANCOMYCIN 1.5GM/250ML IV SCH (12:11)
[2024-10-28] MEDS: SODIUM BICARBONATE 100 MEQ in SODIUM CHLORIDE 0.45% 900 ML IV SCH (12:11)
[2024-10-28 12:17] LABS: LACTIC ACID 26.8 mmol/L (0.4-2.0)
[2024-10-28 12:21] LABS: TROPONIN I HIGH SENSITIVITY 124 ng/L (3.0-34)
[2024-10-28 13:03] LABS: MEAN CORPUSCULAR HEMOGLOBIN 27.6 pg (28.0-32.0); MEAN CORPUSCULAR HGB CONC 29.1 g/dL (31.0-37.0); PLATELET 125 x1000/uL (130-400); RED BLOOD CELL COUNT 1.99 mill/uL (4.2-5.4); RED CELL DISTRIBUTION WIDTH 17.5 % (11.6-14.6)
[2024-10-28 13:24] LABS: HEMATOCRIT 18.9 % (36.0-48.0); HEMOGLOBIN 5.5 g/dL (12.0-16.0); WHITE BLOOD COUNT 65.5 x1000/uL (4.5-11.0)
[2024-10-28 13:37] LABS: BG BASE EXCESS -9.9 mmol/L (-2.0-3.0); BG CARBOXYHEMOGLOBIN 1.2 % (0.5-1.5); BG DEOXYHEMOGLOBIN 22.8 % (0.0-5.0); BG FRACTION INSPIRED OXYGEN 80; BG HCO3 ACT 17.4 mmol/L (21.0-28.0); BG METHEMOGLOBIN 1.3 % (0.5-1.5); BG OXYGEN SATURATION 76.6 % (94.0-98.0); BG OXYHEMOGLOBIN 74.7 % (94.0-98.0); BG PCO2 46.3 mmHg (32.0-45.0); BG PH 7.192 (7.350-7.450); BG PO2 54.6 mmHg (83.0-108.0); BG TOTAL HEMOGLOBIN 5.7 g/dL (12.0-16.0); BG VENT MODE VENT - AC
[2024-10-28] MEDS ORDERED: IOHEXOL-300 100 ML BOTTLE ONE (13:59)
[2024-10-28] MEDS: PHENYLEPHRINE 100 MG in DEXT 5% WATER 240 ML IV PRN (14:23)
[2024-10-28] MEDS ORDERED: EPOETIN ALFA-EPBX 4,000 UNIT/ML VIAL SUBCUT SCH (14:30)
[2024-10-28 14:59] LABS: ALANINE AMINOTRANSFERASE 4973 IU/L (10-49)
[2024-10-28 17:14] LABS: ANISOCYTOSIS 1+; NUCLEATED RED BLOOD CELLS 5 /100 WBC; PLATELET ESTIMATE NORMAL
[2024-10-28 17:30] LABS: HEMATOCRIT 23.3 % (36.0-48.0)
[2024-10-28] MEDS: DEXT 5%/0.9% NACL 1,000 ML IV SCH (17:47)
[2024-10-28] MEDS: DEXTROSE 50% WATER 50ML SYRINGE IV PRN (17:47)
[2024-10-28 18:04] LABS: BG BASE EXCESS -15.9 mmol/L (-2.0-3.0); BG DEOXYHEMOGLOBIN 36.2 % (0.0-5.0); BG FRACTION INSPIRED OXYGEN 80; BG HCO3 ACT 12.4 mmol/L (21.0-28.0); BG METHEMOGLOBIN 4.8 % (0.5-1.5); BG OXYGEN SATURATION 61.6 % (94.0-98.0); BG PCO2 42.2 mmHg (32.0-45.0); BG PH 7.087 (7.350-7.450); BG SAMPLE SITE RIGHT RADIAL; BG TOTAL HEMOGLOBIN 5.7 g/dL (12.0-16.0); BG VENT MODE VENT - AC
[2024-10-28] MEDS: MEROPENEM 500MG/50ML 50 ML IV SCH (20:55)
[2024-10-28] MEDS: EPOETIN ALFA-EPBX 4,000 UNIT/ML VIAL SUBCUT SCH (21:34)
[2024-10-28] MEDS: EPINEPHRINE 10 MG in SODIUM CHLORIDE 0.9% 240 ML IV PRN (22:15)
[2024-10-28] MEDS: DOPAMINE 800MG PREMIX (DOUBLE) 250 ML IV PRN (22:31)
[2024-10-28] MEDS: NOREPINEPHRINE 32 MG in DEXT 5% WATER 218 ML IV PRN (22:43)
[2024-10-28 23:56] LABS: CALCIUM 6.7 mg/dL (8.7-10.4)
[2024-10-29 00:01] LABS: CREATININE 3.2 mg/dL (0.6-1.0); GLUCOSE 201 mg/dL (70-105); UREA NITROGEN BLOOD 60 mg/dL (9-23)
[2024-10-29 00:05] LABS: SODIUM 141 mEq/L (136-145)
[2024-10-29 00:06] LABS: CHLORIDE 85 mEq/L (98-107)
[2024-10-29 00:08] LABS: POTASSIUM 8.9 mEq/L (3.5-5.1)
[2024-10-29 00:09] LABS: CARBON DIOXIDE < 10 mEq/L (21-32)
[2024-10-29] MEDS ORDERED: VANCOMYCIN 1G PREMIX 200 ML IV SCH (10:00)
== END 2024-10-29 02:50 | DRG 871 ==
LOC: ER 14:05 → 5EST 15:49 → EDBEDREQTM 15:52 → EDBEDREQ 15:52 → CVICU 10-22 17:26
PROVIDERS: ADMIT Internal Medicine; ATTEND Internal Medicine
PROC: 5A09357 Assistance with Respiratory Ventilation, Less than 24 Consecutive Hours, Continuous Positive Airway Pressure (ICD-10-PCS; principal; 2024-10-20)
PROC: 5A09357 Assistance with Respiratory Ventilation, Less than 24 Consecutive Hours, Continuous Positive Airway Pressure (ICD-10-PCS; 2024-10-21)
PROC: 5A09457 Assistance with Respiratory Ventilation, 24-96 Consecutive Hours, Continuous Positive Airway Pressure (ICD-10-PCS; 2024-10-22)
PROC: 5A09457 Assistance with Respiratory Ventilation, 24-96 Consecutive Hours, Continuous Positive Airway Pressure (ICD-10-PCS; 2024-10-23)
PROC: 5A0935A Assistance with Respiratory Ventilation, Less than 24 Consecutive Hours, High Flow/Velocity Cannula (ICD-10-PCS; 2024-10-23)
PROC: 02HV33Z Insertion of Infusion Device into Superior Vena Cava, Percutaneous Approach (ICD-10-PCS; 2024-10-24)
PROC: B548ZZA Ultrasonography of Superior Vena Cava, Guidance (ICD-10-PCS; 2024-10-24)
PROC: 5A09357 Assistance with Respiratory Ventilation, Less than 24 Consecutive Hours, Continuous Positive Airway Pressure (ICD-10-PCS; 2024-10-26)
PROC: 5A0935A Assistance with Respiratory Ventilation, Less than 24 Consecutive Hours, High Flow/Velocity Cannula (ICD-10-PCS; 2024-10-26)
PROC: 5A09357 Assistance with Respiratory Ventilation, Less than 24 Consecutive Hours, Continuous Positive Airway Pressure (ICD-10-PCS; 2024-10-27)
PROC: 5A0935A Assistance with Respiratory Ventilation, Less than 24 Consecutive Hours, High Flow/Velocity Cannula (ICD-10-PCS; 2024-10-27)
PROC: 02HV33Z Insertion of Infusion Device into Superior Vena Cava, Percutaneous Approach (ICD-10-PCS; 2024-10-27)
PROC: B548ZZA Ultrasonography of Superior Vena Cava, Guidance (ICD-10-PCS; 2024-10-27)
PROC: 5A1935Z Respiratory Ventilation, Less than 24 Consecutive Hours (ICD-10-PCS; 2024-10-28)
PROC: 0BH17EZ Insertion of Endotracheal Airway into Trachea, Via Natural or Artificial Opening (ICD-10-PCS; 2024-10-28)
PROC: 5A12012 Performance of Cardiac Output, Single, Manual (ICD-10-PCS; 2024-10-28)
DX: A41.9 Sepsis, unspecified organism (principal); G92.8 Other toxic encephalopathy; J96.21 Acute and chronic respiratory failure with hypoxia; K68.3 Retroperitoneal hematoma; N17.0 Acute kidney failure with tubular necrosis; K72.00 Acute and subacute hepatic failure without coma; I21.A1 Myocardial infarction type 2; J18.1 Lobar pneumonia, unspecified organism; E87.4 Mixed disorder of acid-base balance; N39.0 Urinary tract infection, site not specified; D62 Acute posthemorrhagic anemia; I50.22 Chronic systolic (congestive) heart failure; Z20.822 Contact with and (suspected) exposure to COVID-19; R57.8 Other shock; R57.1 Hypovolemic shock; E78.5 Hyperlipidemia, unspecified; R65.20 Severe sepsis without septic shock; I46.9 Cardiac arrest, cause unspecified; Z66 Do not resuscitate; E87.6 Hypokalemia; I11.0 Hypertensive heart disease with heart failure; I48.0 Paroxysmal atrial fibrillation; E83.42 Hypomagnesemia; D69.6 Thrombocytopenia, unspecified; I25.10 Atherosclerotic heart disease of native coronary artery without angina pectoris; I49.1 Atrial premature depolarization; R59.0 Localized enlarged lymph nodes; E04.1 Nontoxic single thyroid nodule; E87.5 Hyperkalemia; K44.9 Diaphragmatic hernia without obstruction or gangrene; F41.9 Anxiety disorder, unspecified; I35.1 Nonrheumatic aortic (valve) insufficiency; Z92.3 Personal history of irradiation; Z90.12 Acquired absence of left breast and nipple; Z95.2 Presence of prosthetic heart valve; Z86.74 Personal history of sudden cardiac arrest; Z79.811 Long term (current) use of aromatase inhibitors; Z79.82 Long term (current) use of aspirin; Z79.899 Other long term (current) drug therapy; Z85.3 Personal history of malignant neoplasm of breast; Z87.01 Personal history of pneumonia (recurrent); Z95.1 Presence of aortocoronary bypass graft; Z95.3 Presence of xenogenic heart valve
CPT/HCPCS: 36415; 36573; 36600; 71045; 71250; 71270; 74178; 80048; 80061; 80076; 80202; 80305; 81003; 82375; 82550; 82553; 82805; 82962; 83036; 83605; 83735; 83880; 84100; 84145; 84439; 84443; 84484; 85014; 85018; 85025; 85027; 85379; 86920; 87070; 87426; 93005; 93306; 93970; 94003; 94640; 94660; 97162; 97166; 97530; 97535; 99291; C1725; C1893; J0282; J0692; J0696; J0885; J1160; J1265; J1650; J1815; J1940; J2185; J2405; J2470; J2543; J2919; J2920; J3370; J3475; J3480; J3490; J7030; J7042; J7050; J7060; J7121; J7608; P9041; Q9957; Q9967